=== PATIENT | female | born 1960 | race Caucasian/White ===

== ENCOUNTER 2021-11-18 21:57 | Emergency (ER) | payer MEDICAID ==
[~2021-11-18] VITALS: Ht 160 cm; Wt 67.1 kg
[2021-11-18 23:00] VITALS: BP 149/86
--- NOTE | 2021-11-19 00:09 | NUR ---
PT AMBULATED TO BED 4
[2021-11-19] MEDS ORDERED: LIDOCAINE MPF 1% 10 MG/ML VIAL INJ ONE (00:40)
[2021-11-19] MEDS ORDERED: SULFAMETH/TRIMETH DS 800/160MG 1 TAB PO ONE (00:40)
[2021-11-19] MEDS ORDERED: cephALEXin 500 MG CAP PO ONE (00:40)
[2021-11-19 01:41] VITALS: BP 150/87
[2021-11-19] MEDS ORDERED: cephALEXin 500 MG CAP ONE (01:57)
[2021-11-19] MEDS ORDERED: SULFAMETH/TRIMETH 400/80MG 1 TAB ONE ×2 (01:57→02:10)
[2021-11-19] MEDS ORDERED: LIDOCAINE MPF 1% 5 ML ONE (01:58)
[2021-11-19] MEDS ORDERED: SULF-59 PO (02:41)
[2021-11-19] MEDS ORDERED: IBUP-2213 PO (02:41)
[2021-11-19] MEDS ORDERED: CEPH500C16 PO (02:41)
== END 2021-11-19 03:30 | disposition home or self-care (01) ==
LOC: MED 21:57
DX: L02.01 Cutaneous abscess of face (principal); L03.211 Cellulitis of face; Z88.0 Allergy status to penicillin; Z79.899 Other long term (current) drug therapy
CPT/HCPCS: 10160; 73130; 99284; J2001; Q0092; 99283